=== PATIENT | female | born 1945 | race Caucasian/White ===

== ENCOUNTER 2017-05-07 07:17 | Inpatient (IN) | payer OTHER, BC ==
[2017-05-02 12:07] VITALS: BMI 33.2
--- NOTE | 2017-05-03 09:54 | HP ---
Satellite [facility] - Chief Complaint Chief Complaint: left knee pain - Past Medical History Allergies/Adverse Reactions: Allergies Allergy/AdvReac Type Severity Reaction Status Date / Time No Known Allergies Allergy Verified 05/02/17 11:22 - Current Medications Current Medications: Home Medications Medication Instructions Recorded Rosuvastatin Calcium [Crestor] 40 mg PO DAILY 03/18/16 Triamterene/Hydrochlorothiazid 1 each PO DAILY 03/18/16 [Dyazide 37.5-25 Capsule] Clonazepam [Klonopin -] 0.5 mg PO HS 05/02/17 Escitalopram Oxalate [Lexapro -] 20 mg PO DAILY 05/02/17 Venlafaxine HCl ER [Effexor Xr -] 75 mg PO DAILY 05/02/17 Satellite Physical Exam - Physical Examination General Appearance: Well Nourished, Well Developed, Alert & Oriented x3 ENT: Clear Lung: Normal air movement Heart: Regular rate & rhythm Extremities: Other (left knee- + swelling, +ttp, decr rom, nvi xrays show grade 4 tricompartmental djd) Neurological: Intact, Alert, Oriented Satellite Impression/Plan - Impression/Plan Impression: left knee djd Operative Procedure: left jacinto tkr Date to be Performed: 05/07/17
[2017-05-07] MEDS ORDERED: CEFAZOLIN 2 GM in DEXTROSE 5%-WATER - 50 ML IVPB ONE (07:47)
[2017-05-07] MEDS ORDERED: CELECOXIB 200 MG CAPSULE PO ONE (07:47)
[2017-05-07] MEDS ORDERED: TRANEXAMIC ACID 1000 MG/10 ML VIAL IVPUSH ONE (07:47)
[2017-05-07] MEDS ORDERED: GABAPENTIN 300 MG CAPSULE (FP) PO ONE (07:47)
[2017-05-07] MEDS ORDERED: DEXAMETHASONE SOD PHOSPHATE/PF 10 MG/ML SDV ONE (08:21)
[2017-05-07] MEDS ORDERED: BUPIVACAINE HCL/PF (5 MG/ML) 30 ML VIAL IJ ONE (08:21)
[2017-05-07] MEDS ORDERED: MIDAZOLAM HCL 2 MG/2 ML SINGLE DOSE VIAL ONE (08:21)
[2017-05-07] MEDS ORDERED: SODIUM CHLORIDE 0.9% P/F 10 ML VIAL IJ ONE (08:22)
[2017-05-07] MEDS ORDERED: VANCOMYCIN 1,000 MG VIAL (RESTRICTED TO ID ONLY) ONE (08:36)
[2017-05-07] MEDS ORDERED: ceFAZolin SODIUM 1 GM VIAL ONE (08:36)
[2017-05-07] MEDS ORDERED: ePHEDrine SULFATE 50 MG/1 ML AMPULE ONE (09:41)
[2017-05-07] MEDS ORDERED: PROPOFOL 20 ML ONE (10:04)
[2017-05-07] MEDS ORDERED: METOPROLOL TARTRATE 5 MG/5 ML VIAL ONE (10:14)
[2017-05-07] MEDS ORDERED: VANCOMYCIN 1,000 MG VIAL (RESTRICTED TO ID ONLY) IVPB ONE (11:00)
[2017-05-07] MEDS ORDERED: MAGNESIUM HYDROX 2400MG/30ML ORAL SUSPENSION 30 ML CUP PO PRN (11:38)
[2017-05-07] MEDS ORDERED: MAG HYDROX/AL HYDROX/SIMETH 30 ML UNIT-DOSE CUP PO PRN (11:38)
--- NOTE | 2017-05-07 11:40 | OP ---
Operative Note - Note: Operative Date: 05/07/17 (trini) Pre-Operative Diagnosis: left knee djd Operation: left jacinto tkr Post-Operative Diagnosis: Same as Pre-op Surgeon: Esvin Harrington [employer]: Josse Neal Anesthesiologist/HOSE COUPLING JOINER: Syed Garner Anesthesia: General, Spinal, Local Specimens Removed: bone fragments Estimated Blood Loss (mls): 100 (tourniquet) Operative Report Dictated: Yes
[2017-05-07] MEDS ORDERED: LACTATED RINGERS SOLUTION 1,000 ML IV SCH (11:45)
[2017-05-07] MEDS ORDERED: oxyCODONE HCL 5 MG TABLET PO PRN (11:53)
[2017-05-07] MEDS ORDERED: ONDANSETRON 4 MG/2 ML VIAL IVPUSH ONE ×2 (11:57)
[2017-05-07] MEDS ORDERED: ACETAMINOPHEN 325 MG TABLET (FP) PO ONE (12:45)
[2017-05-07] MEDS ORDERED: oxyCODONE HCL 10 MG SUSTAINED ACTING TABLET PO ONE (12:47)
[2017-05-07] MEDS ORDERED: oxyCODONE HCL 10 MG SUSTAINED ACTING TABLET ONE (12:54)
[2017-05-07] MEDS: LACTATED RINGERS SOLUTION 1,000 ML IV SCH (14:51)
[2017-05-07] MEDS: oxyCODONE HCL 5 MG TABLET PO PRN ×3 (14:57→22:38)
--- NOTE | 2017-05-07 15:45 | SPEC ---
DATE OF OPERATION: 05/07/2017 PREOPERATIVE DIAGNOSIS: Degenerative joint disease, left knee. POSTOPERATIVE DIAGNOSIS: Degenerative joint disease, left knee. PROCEDURE: Left total knee replacement with robotic-assisted navigation (Makoplasty). SURGICAL ATTENDING: Esvin Harrington M.D. CHARGE MASTER SPECIALIST: Telma Ibanez ANESTHESIA: Regional and spinal. CLOSURE: A cemented Triathlon knee system with a 5 femur, 6 tibia, 11 polyethylene, 32 patella, number 1 Vicryl fascia, 0 and 2-0 subcutaneous, 3-0 Monocryl subcuticular with skin glue for skin, 4-0 undyed Vicryl for pin site. ESTIMATED BLOOD LOSS: Less than 100 cc. COMPLICATIONS: None. CONDITION: To recovery room in stable condition. DESCRIPTION OF OPERATIVE PROCEDURE: Patient was taken to the operating room on February 26, 2017. Regional and general anesthesia was administered by the anesthesiologist. IV Kefzol and TXA were administered by the anesthesiologist. Well-padded pneumatic tourniquet was placed on the proximal thigh. The left lower extremity was prepped and draped in the usual sterile fashion. The leg was exsanguinated with an Esmarch bandage, and tourniquet was inflated to 275 mmHg. A 12 to 15-cm longitudinal midline incision was incised while centered over the patella. The dissection was carried down to the level of the extensor mechanism with sufficient flaps made to adequately perform the procedure. A medial parapatellar arthrotomy was then performed. We made a cuff of tissue on the patella for later closure. The patella was inverted, the knee was flexed up. The fat pad was excised. The subperiosteal dissection was on the anteromedial proximal tibia around towards the direction of the MCL. The ACL and the PCL were transected and debrided. The meniscal remnants of the medial and lateral meniscus were debrided and removed. This allowed the knee to be able to "be brought forward." The checkpoints were malleted into the tibia and into the femur. Two threaded pins were drilled anteroposteriorly proximal to the knee through the previous incision, through the anterior cortex, then just engaging the posterior cortex. To these pins was assembled the femoral navigation array. One handbreadth below the tibial tubercle, 2 stab incisions were used to drill 2 threaded pins in parallel fashion into the tibia, again through the anterior cortex and just engaging the posterior cortex. To these pins was fastened the tibial arrays. The knee was then registered with the navigation device with center of rotation of the hip, medial and lateral malleoli, both checkpoints, and multiple points on both the femur and the tibia to ensure excellent registration. The navigation device was directed off the "top of the bubbles" on both the femur and the tibia. The navigation passed within less than 0.5 mm to plan. The knee was then thoroughly inspected to remove all osteophytes both medially, laterally, and on the femur and the tibia, and whatever osteophytes were available for dissection. The knee was then taken to extension and to flexion, and stressed in both varus and valgus to assess flexion gaps. The virtual position of the components on the navigation device were then manipulated to optimize the position and to ensure equal gaps in both flexion and extension, and both medially and laterally. The robot was then brought into the field and was registered. The cuts were then made both on the femur and on the tibia as to plan. All osteophytes posteriorly were then removed as well. The gaps were then measured again in flexion and extension to be equal in both flexion and extension and medial and laterally. The femoral notch was then made, as we were doing a posterior stabilizing component, with the appropriate sized box. Trial reduction of the femur achieved excellent [id number] fit. A tibial baseplate of appropriate polyethylene thickness was "floated in the knee." It was ensured to be in the excellent position by navigation devices and was pinned in place. The knee was taken through a range of motion, and found to have excellent stability throughout flexion and extension. The patella was calibrated for thickness and osteotomized down to the appropriate level. The appropriate lollipop was used to drill the lug holes in the patella and the trial button was applied. The knee was taken through a range of motion and found to have excellent tracking of the patella, and patella from full extension to full flexion. Trial components were removed, the keel was punched and drilled, and a sclerotic bone on the tibia was drilled to help with cement interdigitation. The knee was thoroughly irrigated with the pulse antibiotic roofer vinyl coating. The real components were then cemented in using monitored arrangement cement techniques with antibiotic cement, and pressurization and extension. After the cement was hardened, the knee was thoroughly inspected to remove any extra cement. The real polyethylene component was then clipped into place. Range of motion, stability, and tracking were as described earlier. The checkpoints and the pins were removed. The knee was thoroughly irrigated with antibiotic irrigation. Vancomycin powder was placed into the knee for antibiotic prophylaxis. The medial parapatellar arthrotomy was then closed using number 1 Vicryl interrupted suture. After closure of the deep layer, the knee was taken through a range of motion, and found to have excellent stability of the patella with no dislocation and no undue tension on the repair. The subcutaneous was pulse antibiotic irrigated, and was then closed with 2-0 Vicryl, 3-0 Monocryl subcuticular with the skin glue for the skin. The distal tibial pin site was irrigated thoroughly as well and then closed with 4-0 undyed Vicryl. A sterile Aquacel dressing was applied, followed by a Pressley dressing. Tourniquet was deflated. Total tourniquet time was approximately 75 minutes. No complications. Patient was awakened from anesthesia and transferred to recovery room in stable condition. Postoperative x-rays revealed excellent position of the components. Zac [id number]
[2017-05-07] MEDS: CEFAZOLIN 2 GM/D5W 2 GM/50 ML ML IVPB SCH (17:51)
[2017-05-07] MEDS: ACETAMINOPHEN 325 MG TABLET (FP) PO SCH (20:12)
[2017-05-07] MEDS: SENNOSIDES/DOCUSATE COMBO (SENNA PLUS) TABLET (UD) PO SCH (21:44)
[2017-05-07] MEDS: ROSUVASTATIN CA 40 MG TABLET PO SCH (21:45)
[2017-05-07] MEDS: GABAPENTIN 300 MG CAPSULE (FP) PO SCH (21:45)
[2017-05-07] MEDS: oxyCODONE HCL 10 MG SUSTAINED ACTING TABLET PO SCH (21:45)
[2017-05-07] MEDS ORDERED: clonazePAM 0.5 MG TABLET PO PRN (22:00)
[2017-05-08] MEDS: CEFAZOLIN 2 GM/D5W 2 GM/50 ML ML IVPB SCH (01:54)
[2017-05-08] MEDS: ACETAMINOPHEN 325 MG TABLET (FP) PO SCH ×4 (02:00→19:56)
[2017-05-08] MEDS: oxyCODONE HCL 5 MG TABLET PO PRN ×3 (02:04→19:57)
[2017-05-08] MEDS: ASPIRIN 325 MG TABLET PO SCH (08:16)
--- NOTE | 2017-05-08 08:35 | PN ---
Progress Note (short form) - Note Progress Note: Ortho Pt seen and examined s/p left jacinto tkr pod #1 Selected Entries 05/08/17 06:00 Temperature 98.0 F Pulse Rate 65 Respiratory 18 Rate Blood Pressure 110/55 Laboratory Tests 05/08/17 07:45 WBC Pending Hgb Pending Hct Pending Plt Count Pending dressing c/d/i, calf soft ,nt rom 0-50, nvi a/p PT dvt ppx pain control d/c home tomorrow if stable
[2017-05-08 08:40] LABS: HEMATOCRIT 34.6 % (32.4-45.2); HEMOGLOBIN 11.5 GM/dl (10.7-15.3); MCH 28.6 pg (25.7-33.7); MCHC 33.2 g/dl (32.0-36.0); MEAN CELL VOLUME 86.3 fl (80-96); MEAN PLT VOLUME 10.7 fl (7.5-11.1); PLATELET COUNT 174 K/MM3 (134-434); RBC 4.01 M/mm3 (3.60-5.2); RDW 13.9 % (11.6-15.6); WHITE BLOOD COUNT 9.5 K/mm3 (4.0-10.8)
[2017-05-08] MEDS ORDERED: PT OWN MED DRAWER 7, Y5N ONE (09:09)
[2017-05-08] MEDS: VENLAFAXINE HCL 75 MG E.R. CAPSULES (FP) PO SCH (09:18)
[2017-05-08] MEDS: SENNOSIDES/DOCUSATE COMBO (SENNA PLUS) TABLET (UD) PO SCH ×2 (09:18→21:16)
[2017-05-08] MEDS: TRIAMTERENE AND HCTZ - 37.5 MG/25 MG CAPSULE PO SCH (09:18)
[2017-05-08] MEDS: PANTOPRAZOLE 40 MG TABLET (FP) PO SCH (09:18)
[2017-05-08] MEDS: ESCITALOPRAM OXALATE 20 MG TABLET (FP) PO SCH (09:18)
[2017-05-08] MEDS: MULTIVITAMINS (DAILY MVI) TABLET (FP) PO SCH (09:18)
[2017-05-08] MEDS: GABAPENTIN 300 MG CAPSULE (FP) PO SCH ×2 (09:18→21:16)
[2017-05-08] MEDS: oxyCODONE HCL 10 MG SUSTAINED ACTING TABLET PO SCH ×2 (09:19→21:16)
[2017-05-08] MEDS: LACTATED RINGERS SOLUTION 1,000 ML IV SCH (11:29)
--- NOTE | 2017-05-08 13:08 | PN ---
Progress Note (short form) - Note Progress Note: 71F POD1 s/p left total knee replacement under spinal anesthetic with peripheral nerve blocks. Pt doing well, reports no anesthetic complications, pain is well controlled. Sensory and motor function is intact in bilateral lower extremities.
[2017-05-08] MEDS: ROSUVASTATIN CA 40 MG TABLET PO SCH (21:16)
[2017-05-08 23:08] VITALS: PULSE 88
[2017-05-09] MEDS: ACETAMINOPHEN 325 MG TABLET (FP) PO SCH ×2 (05:30→09:31)
[2017-05-09 05:38] VITALS: BP 107/53; TEMP 98
[2017-05-09] MEDS: oxyCODONE HCL 5 MG TABLET PO PRN (06:56)
[2017-05-09 08:10] LABS: HEMOGLOBIN 11.1 GM/dl (10.7-15.3); MCHC 33.7 g/dl (32.0-36.0)
[2017-05-09 08:12] LABS: MCH 29.1 pg (25.7-33.7); MEAN CELL VOLUME 86.4 fl (80-96); MEAN PLT VOLUME 10.9 fl (7.5-11.1); PLATELET COUNT 160 K/MM3 (134-434); RBC 3.82 M/mm3 (3.60-5.2); RDW 13.3 % (11.6-15.6); WHITE BLOOD COUNT 10.7 K/mm3 (4.0-10.8)
[2017-05-09] MEDS ORDERED: PT OWN MED DRAWER 7, Y5N ONE (09:16)
[2017-05-09] MEDS: ASPIRIN 325 MG TABLET PO SCH (09:29)
[2017-05-09] MEDS: PANTOPRAZOLE 40 MG TABLET (FP) PO SCH (09:29)
[2017-05-09] MEDS: VENLAFAXINE HCL 75 MG E.R. CAPSULES (FP) PO SCH (09:30)
[2017-05-09] MEDS: TRIAMTERENE AND HCTZ - 37.5 MG/25 MG CAPSULE PO SCH (09:30)
[2017-05-09] MEDS: ESCITALOPRAM OXALATE 20 MG TABLET (FP) PO SCH (09:30)
[2017-05-09] MEDS: SENNOSIDES/DOCUSATE COMBO (SENNA PLUS) TABLET (UD) PO SCH (09:31)
[2017-05-09] MEDS: MULTIVITAMINS (DAILY MVI) TABLET (FP) PO SCH (09:31)
[2017-05-09] MEDS: GABAPENTIN 300 MG CAPSULE (FP) PO SCH (09:32)
[2017-05-09] MEDS: oxyCODONE HCL 10 MG SUSTAINED ACTING TABLET PO SCH (09:32)
--- NOTE | 2017-05-10 09:44 | DS ---
Physical Examination Vital Signs: Vital Signs Temperature 98.0 F 05/09/17 05:36 Pulse Rate 88 05/09/17 05:36 Respiratory Rate 18 05/09/17 05:36 Blood Pressure 107/53 05/09/17 05:36 O2 Sat by Pulse Oximetry (%) 97 05/09/17 06:26 Labs: CBC, BMP 05/09/17 07:00 Discharge Summary Reason For Visit: OSTEOARTHRITIS Procedures: Principal: s/p left jacinto tkr Hospital Course: admitted for elective left jacinto tkr, uneventful post-op, stable for d/c Condition: Good - Instructions Diet, Activity, Other Instructions: Post-op Instructions-Total Knee Replacement Call the office for a follow-up appointment in 1 week - [phone] Aspirin 325mg daily for 6 weeks. Pain medication was sent into your pharmacy. Apply Graduated Compression Stockings (TEDs) to both lower extremities- remove daily for hygiene ONLY Apply Sequential Compression Device (SCDs) to both Lower extremities remove for PT and hygiene ONLY Apply cold packs to affected area for 15 minutes every 2 hours. Physical Therapist will come to your home for the first 5 days. You will be set up with outpatient PT at your first post-operative visit. Patient may ambulate as tolerated-encourage self care (at least every 2-3 hours while awake) with walker or cane Maintain Aquacel (waterproof) dressing to operative wound (will be removed by surgeon at first office visit) Shower with Aquacel dressing in place-if Aquacel integrity compromised, remove and apply dry sterile dressing and notify Orthopedist. DO NOT SHOWER unless Orthopedists approves without Aquacel dressing CONTACT THE OFFICE FOR ANY CHANGE IN YOUR CONDITION (for example-fever greater than 102 degrees, excessive bleeding from operative site, purulent drainage, severe swelling or pain) GO TO THE EMERGENCY ROOM IF THERE IS A MEDICAL EMERGENCY Knee Precautions: * Keep a rolled towel under affected heel while in bed or chair (to keep knee in extension) * Keep affected leg elevated except during mealtimes * DO NOT PLACE PILLOW UNDER AFFECTED KNEE * If you have any questions, please do not hesitate to call the office - . Referrals: Esvin Harrington MD [Staff Physician] - Disposition: VNS/HOME HEALTH CARE - Home Medications Comprehensive Discharge Medication List: Ambulatory Orders Rosuvastatin Calcium [Crestor] 40 mg PO HS 03/18/16 Triamterene/Hydrochlorothiazid [Dyazide 37.5-25 Capsule] 1 each PO DAILY Clonazepam [Klonopin -] 0.5 mg PO HS 05/02/17 Escitalopram Oxalate [Lexapro -] 20 mg PO DAILY 05/02/17 Venlafaxine HCl ER [Effexor Xr -] 75 mg PO DAILY 05/02/17 Aspirin [ASA -] 325 mg PO DAILY@0800 tablet 05/07/17 Oxycodone HCl/Acetaminophen [Percocet 5-325 mg Tablet] 1 - 2 tab PO Q6H #50 tab MDD 8 05/07/17
--- NOTE | 2017-05-10 12:50 | PATH ---
Surgical Pathology Report Patient Name: ISBAELLE CAREY Med. Rec. #: [id number] /Age/Gender: 1945 (Age: 71) / F Account: [id number] Location: [facility] MED-SURG Taken: 05/07/2017 Received: 05/07/2017 Reported: 05/10/2017 Physicians: Esvin Harrington M.D. Specimen(s) Received LEFT KNEE BONES Clinical History Left knee osteoarthritis Final Diagnosis BONE, KNEE, LEFT, TOTAL KNEE REPLACEMENT: BONE WITH DEGENERATIVE JOINT DISEASE, FIBROADIPOSE TISSUE AND SYNOVIUM. Electronically Signed Liz Pearl M.D. Gross Description Received in formalin labeled "left knee bone," is an 11.0 x 10.0 x 2.0 cm aggregate of multiple saucedo-yellow, irregular portions of bone and soft tissue, consistent with knee bones. There is a 1.0 cm in greatest dimension area of eburnation identified. The remaining articular surfaces are saucedo-yellow and diffusely granular. The underlying trabecular bone is yellow and hard. Tax Revenue Officer sections are submitted in one cassette, following decalcification. /05/09/2017 saudi05/09/2017
== END 2017-05-09 12:13 | disposition home health service (06) | DRG 470 ==
LOC: FM/S 07:17
PROVIDERS: ADMIT Orthopaedic Surgery; ATTEND Orthopaedic Surgery
PROC: 0SRD0J9 Replacement of Left Knee Joint with Synthetic Substitute, Cemented, Open Approach (ICD-10-PCS; principal; 2017-05-07 09:30)
DX: M17.12 Unilateral primary osteoarthritis, left knee (principal)
CPT/HCPCS: 36415; 73560-TC-LT; 85027; 88304-TC; 88311-TC; 94010; 94760; 97116-GP; 97163-GP

== ENCOUNTER 2017-05-15 09:32 | Emergency (ER) | payer OTHER, BC ==
[2017-05-15 09:47] VITALS: BP 139/75; PULSE 75; TEMP 98.4; BMI 33.2
--- NOTE | 2017-05-15 09:56 | PDOC ---
History of Present Illness - General Chief Complaint: Laceration Stated Complaint: BLEEDING FROM POST OP SITE LEFT KNEE Time Seen by Provider: 05/15/17 09:42 - History of Present Illness Initial Comments: 05/15/17 09:57 Chief complaint: Bleeding History of present illness: Bleeding since this morning from site of incision left knee. Knee replacement 1 week ago. Begun on aspirin for DVT prevention. Review of systems: Denies pain, swelling, knee or calf. Denies chest pain, shortness of breath, abdominal pain, nausea, vomiting, diarrhea, visual or focal neurologic symptoms, unsteadiness of gait Past medical history: Left knee replacement approximately 8 days ago, without complication. Has been ambulating adequately without significant pain. Otherwise noncontributory Social/family history reviewed and noncontributory Physical exam: Alert oriented no acute distress cooperative Afebrile, vital signs normal Left knee: The original bandage was removed. There was a large clot overlying the incision. This was removed. The incision itself is clean and dry. There appeared to be no further oozing or bleeding from the site. There was no swelling, fluctuant mass, or fluid palpable. Impression: Slowly accumulating hematoma, began draining this morning. Appears to be completely drained, with blood clot but no new blood or serosanguineous fluid visible. Plan: Wound was redressed with Telfa, gauze pads, with mild pressure applied with Lance bandage. Rest and elevation until follow-up with surgeon later this afternoon as scheduled. Adequately ambulatory and in no distress upon discharge to follow-up as directed. Past History - Past Medical History Allergies/Adverse Reactions: Allergies Allergy/AdvReac Type Severity Reaction Status Date / Time No Known Allergies Allergy Verified 05/15/17 09:35 Home Medications: Ambulatory Orders Rosuvastatin Calcium [Crestor] 40 mg PO HS 03/18/16 Triamterene/Hydrochlorothiazid [Dyazide 37.5-25 Capsule] 1 each PO DAILY Clonazepam [Klonopin -] 0.5 mg PO HS 05/02/17 Escitalopram Oxalate [Lexapro -] 40 mg PO DAILY 05/02/17 Venlafaxine HCl ER [Effexor Xr -] 75 mg PO DAILY 05/02/17 Aspirin [ASA -] 325 mg PO DAILY@0800 tablet 05/07/17 Oxycodone HCl/Acetaminophen [Percocet 5-325 mg Tablet] 1 - 2 tab PO Q6H #50 tab MDD 8 05/07/17 Anemia: No Asthma: No Cancer: No Cardiac Disorders: No CVA: No COPD: No CHF: No Dementia: No Diabetes: No GI Disorders: No Disorders: No HTN: Yes Hypercholesterolemia: Yes Liver Disease: No Psychiatric Problems: Yes (ANXIETY DEPRESSION) Seizures: No Thyroid Disease: No - Surgical History Abdominal Surgery: Yes (LAP BAND 2007 50 LB.) Appendectomy: Yes Cholecystectomy: No Orthopedic Surgery: Yes (RIGHT KNEE REPLACEMENT) - Suicide/Smoking/Psychosocial Hx Smoking History: Never smoked Have you smoked in the past 12 months: No Information on smoking cessation initiated: No Hx Alcohol Use: No Drug/Substance Use Hx: No Substance Use Type: None Hx Substance Use Treatment: No *Physical Exam - Vital Signs Last Vital Signs Temp Pulse Resp BP Pulse Ox 98.4 F 75 18 139/75 98 05/15/17 09:35 05/15/17 09:35 05/15/17 09:35 05/15/17 09:35 05/15/17 09:35 *DC/Admit/Observation/Transfer Diagnosis at time of Disposition: Postoperative hemorrhage from incision - Discharge Dispostion Disposition: HOME Condition at time of disposition: Improved Admit: No - Referrals - Patient Instructions Additional Instructions: Rest and elevate leg for the rest of today. Do not do excessive standing or walking. See your surgeon Dr. Harrington as scheduled later today for further evaluation and treatment. - Post Discharge Activity
== END 2017-05-15 10:05 | disposition home or self-care (01) ==
LOC: FER 09:32
DX: M96.830 Postprocedural hemorrhage of a musculoskeletal structure following a musculoskeletal system procedure (principal); Z96.651 Presence of right artificial knee joint; E78.00 Pure hypercholesterolemia, unspecified; I10 Essential (primary) hypertension; F41.8 Other specified anxiety disorders; Z98.84 Bariatric surgery status
CPT/HCPCS: 99281-25

== ENCOUNTER 2017-10-11 16:19 | Emergency (ER) | payer OTHER, BC ==
--- NOTE | 2017-10-11 16:23 | PDOC ---
History of Present Illness - General History Source: Patient Exam Limitations: No Limitations <Shivani Scott - Last Filed: 10/11/17 19:20> - History of Present Illness Initial Comments: 10/11/17 18:22 The patient is a 72 year old female, with a significant PMH of left knee replacement in May 2017, arthritis, HTN, HLD who presents to the emergency department with left knee pain today. The patient is currently doing physical therapy for her patellar dislocation. Patient reports she was doing laundry, when she got up from a seated position and felt a tearing sensation on the left knee. The patient has been ambulating but a similar tearing sensation occurred again prior to arrival. Patient is complaining of difficulty weight bearing and ranging her leg. Patient states she has been taking aleeve for pain. The patient denies chest pain, shortness of breath, headache and dizziness. Denies fever, chills, nausea, vomit, diarrhea and constipation. Denies dysuria, frequency, urgency and hematuria. Allergies: NKA Social history: No reported alcohol, drug, or cigarette use. PCP: Dr. Dean <Ximena Butt - Last Filed: 10/11/17 20:23> - General Chief Complaint: Injury Stated Complaint: LEFT KNEE PAIN Time Seen by Provider: 10/11/17 16:20 Past History - Past Medical History Anemia: No Asthma: No Cancer: No Cardiac Disorders: No CVA: No COPD: No CHF: No Dementia: No Diabetes: No GI Disorders: No Disorders: No HTN: Yes Hypercholesterolemia: Yes Liver Disease: No Psychiatric Problems: Yes (ANXIETY DEPRESSION) Seizures: No Thyroid Disease: No - Surgical History Abdominal Surgery: Yes (LAP BAND 2007 50 LB.) Appendectomy: Yes Cholecystectomy: No Orthopedic Surgery: Yes (RIGHT KNEE REPLACEMENT) - Suicide/Smoking/Psychosocial Hx Smoking History: Never smoked Have you smoked in the past 12 months: No Hx Alcohol Use: No Drug/Substance Use Hx: No Substance Use Type: None Hx Substance Use Treatment: No <Shivani Scott - Last Filed: 10/11/17 19:20> <Ximena Butt - Last Filed: 10/11/17 20:23> - Past Medical History Allergies/Adverse Reactions: Allergies Allergy/AdvReac Type Severity Reaction Status Date / Time No Known Allergies Allergy Verified 06/08/18 16:20 Home Medications: Ambulatory Orders Rosuvastatin Calcium [Crestor] 40 mg PO HS 03/18/16 Triamterene/Hydrochlorothiazid [Dyazide 37.5-25 Capsule] 1 each PO DAILY Escitalopram Oxalate [Lexapro -] 20 mg PO DAILY 05/02/17 clonazePAM [Klonopin -] 0.5 mg PO HS 05/02/17 Review of Systems - Review of Systems Able to Perform ROS?: Yes Comments:: 10/11/17 18:46 GENERAL/CONSTITUTIONAL: No fever or chills. No weakness. HEAD, EYES, EARS, NOSE AND THROAT: No change in vision. No ear pain or discharge. No sore throat. CARDIOVASCULAR: No chest pain or shortness of breath. RESPIRATORY: No cough, wheezing, or hemoptysis. GASTROINTESTINAL: No nausea, vomiting, diarrhea or constipation. GENITOURINARY: No dysuria, frequency, or change in urination. MUSCULOSKELETAL: (+) Left knee pain. No or muscle swelling or pain. No neck or back pain. SKIN: No rash NEUROLOGIC: No headache, vertigo, loss of consciousness, or change in strength/ sensation. ENDOCRINE: No increased thirst. No abnormal weight change. HEMATOLOGIC/LYMPHATIC: No anemia, easy bleeding, or history of blood clots. ALLERGIC/IMMUNOLOGIC: No hives or skin allergy. <Ximena Butt - Last Filed: 10/11/17 20:23> *Physical Exam - Vital Signs Last Vital Signs Temp Pulse Resp BP Pulse Ox 98.3 F 59 L 18 105/52 100 10/11/17 16:20 10/11/17 16:20 10/11/17 16:20 10/11/17 16:20 10/11/17 16:20 - Physical Exam Comments: 10/11/17 18:08 GENERAL: The patient is in no acute distress. HEAD: Normal with no signs of trauma. EYES: PERRLA, EOMI, sclera anicteric, conjunctiva clear. ENT: Ears normal, nares patent, oropharynx clear without exudates. Moist mucous membranes. NECK: Normal range of motion, supple without lymphadenopathy, JVD, or masses. LUNGS: Breath sounds equal, clear to auscultation bilaterally. No wheezes, and no crackles. HEART:Regular rate and rhythm, normal S1 and S2 without murmur, rub or gallop. ABDOMEN: Soft, nontender, normoactive bowel sounds. No guarding, no rebound. No masses palpable. EXTREMITIES: No edema. No clubbing or cyanosis. No erythema. (+) DP and PT are palpable. Foot is warm. Knee is stable. (+) Right leg in flexed position. NEUROLOGICAL: Cranial nerves II through XII grossly intact. Normal speech. No focal neurological deficits. MUSCULOSKELETAL: Back non-tender to palpation, no CVA tenderness SKIN: Warm, Dry, normal turgor, no rashes or lesions noted. <Ximena Butt - Last Filed: 10/11/17 20:23> ED Treatment Course - LABORATORY CBC & Chemistry Diagram: 10/11/17 19:52 10/11/17 19:52 - Medications Given in the ED: ED Medications Discontinued Medications Generic Name Dose Route Start Last Admin Trade Name Freq PRN Reason Stop Dose Admin Naproxen 250 mg 10/11/17 16:57 10/11/17 17:00 Naprosyn - PO 10/11/17 16:58 250 mg ONCE ONE Administration <Ximena Butt - Last Filed: 10/11/17 20:23> Medical Decision Making - Medical Decision Making 10/11/17 18:03 Ms Nowak is a 72 yo F h/o Left knee replacement in May 2017, arthritis, HTN , HLD She presents to the ER with a complaint of left knee pain Of note, she is s/p patellar dislocation, is currently doing physical therapy Pt states she was in her usual state of health this morning While doing laundry, she was seated and then stood up She felt a tearing in her left knee which was new for her No fevers or chills she was able to ambulate during the day however, later in the evening, she noted that she stood up again and she felt severe pain in her knee She was unable to bear weight She has limited flexion and extension No swelling No erythema Knee is stable to anterior and posterior drawer 10/11/17 18:04 Will start with x ray 10/11/17 19:09 Attempted to ambulate patient She is unable to do so Severe knee pain and instability Pt can not get home Will do basic labs Will have to admit Will call Ortho 10/11/17 19:[address] Duvall He states he will not see this patient in the ER and thinks she can go home, and should follow up on saturday as planned <Shivani Scott - Last Filed: 10/11/17 19:20> - Medical Decision Making 10/11/17 18:41 Imaging: Left knee XR Reported by: Dr. Ulloa Impression: AP and lateral projections of the left knee reveals the patient to be S/P total knee replacement. The prosthesis is in normal anatomic alignment, well seated within the distal femur and tibial plateau. There is no evidence of fracture. Dislocation or acute bone or joint abnormalities. There is a small suprapatellar effusion present. <Ximena Butt - Last Filed: 10/11/17 20:23> *DC/Admit/Observation/Transfer <Shivani Scott - Last Filed: 10/11/17 19:20> - Attestations Scribe Attestion: 10/11/17 18:48 Documentation prepared by Ximena Butt, acting as medical assistant supervisor for Shivani Scott MD. <Ximena Butt - Last Filed: 10/11/17 20:23> Diagnosis at time of Disposition: Left knee pain Qualifiers: Chronicity: acute Qualified Code(s): M25.562 - Pain in left knee - Discharge Dispostion Condition at time of disposition: Stable - Referrals Referrals: Brayden Dean MD [Primary Care Provider] - - Patient Instructions Printed Discharge Instructions: DI for Knee Pain Additional Instructions: Ms Nowak Thanks for coming in to the ER today Please wear knee Immobilizer as is tolerable Please continue to take Aleve as needed for pain. You can take your knee immobilizer off while in bed. Please follow up with orthopedic surgeon on Saturday (10/14) Return to the ER for any other concerns or complaints - Post Discharge Activity
[2017-10-11 16:25] VITALS: BP 105/52; PULSE 59; TEMP 98.3; BMI 33.2
[2017-10-11] MEDS ORDERED: NAPROXEN 250 MG TABLET (FP) PO ONE (16:57)
[2017-10-11] MEDS ORDERED: NAPROXEN 250 MG TABLET (FP) ONE (16:59)
== END 2017-10-11 20:00 | disposition home or self-care (01) ==
LOC: FER 16:19
PROC: 2W3RX1Z Immobilization of Left Lower Leg using Splint (ICD-10-PCS; principal; 2017-10-11)
DX: M25.562 Pain in left knee (principal); I10 Essential (primary) hypertension; E78.5 Hyperlipidemia, unspecified; F41.8 Other specified anxiety disorders
CPT/HCPCS: 73560-TC-LT-FY; 99283-25